=== PATIENT | female | born 1965 | race Caucasian/White ===

== ENCOUNTER 2019-03-05 07:06 | Emergency (ER) | payer BC, SELFPAY ==
[2019-03-05 07:17] VITALS: BP 132/78; PULSE 90; RESP 14; TEMP 37.1; O2SAT 98
--- NOTE | 2019-03-05 07:27 | ED.GENADUL_ITS ---
Discharge Plan Disposition Patient Disposition: HOME Condition: Improving Discharge Details Chief Complaint: Sorethroat Clinical Impression: Sinusitis Primary Care Provider: Kaitlyn Garvin ED Provider: Devin Can Home Meds and New Rx's Prescriptions: New cefdinir 300 mg capsule 300 mg PO Q12H 7 Days Qty: 14 RF: 0 No Action biotin 800 MCG tablet 10,000 mcg PO DAILY RF: 0 Cosamin ASU 1 EACH capsule 1 ea PO DAILY RF: 0 calcium carbonate-vitamin D3 [Caltrate with Vitamin D3] 1 EACH tablet 1 ea PO DAILY RF: 0 Discharge Instructions Instructions: Sinusitis (ED) Additional Instructions: Home to rest. Small, frequent sips of fluids to maintain hydration. 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 She reports that she went to [place] and swim in the ocean that was questionable in that it was warm and in a yelitza. Following this she developed sinus pain and pressure with sore throat for the past week. She has normal vital signs and is otherwise well-appearing. Screening strep negative. I do feel the patient merits treatment for acute sinusitis. Discussed with her home management as well as follow-up and return precautions. She is stable for discharge to home HPI General Mode of arrival: ambulatory . Date/Time Provider Initiated Documentation: 03/05/19 07:20 . Limitations to Documentation: no limitations . Information obtained by: patient . History of Present Illness 53 year old F presents to the emergency department with the chief complaint of Sore throat and sinus pressure for 1 wk, Quality is described as dull and constant, and is localized to the mouth and neck. Patient reports no radiation. Patient started experiencing this day(s) and it has been constant. No relieving factors improve symptom(s), No exacerbating factors reported . Patient notes other (Sore throat, sinus pain and pressure). Patient did receive the follo wing treatments prior to arrival, none Related Data Home Medications Medication Instructions Recorded Confirmed biotin 10,000 mcg PO DAILY 03/04/15 03/05/19 calcium carbonate-vitamin D3 1 ea PO DAILY 03/04/15 03/05/19 [Caltrate 600 + D Tablet] [id number] 1 ea PO DAILY 03/04/15 03/05/19 [Cosamin Asu Capsule] cefdinir 300 mg PO Q12H 7 Days #14 cap 03/05/19 Previous Rx's Medication Instructions Recorded cefdinir 300 mg PO Q12H 7 Days #14 cap 03/05/19 Allergies Allergy/AdvReac Type Severity Reaction Status Date / Time No Known Allergies Allergy Unverified 03/05/19 07:21 General Stated Complaint: Sorethroat YSABEL: 3 Review of Systems Review of Systems 6 systems reviewed and otherwise neg [facility] Surgical History Dilation and curettage (05/26/16) Hysteroscopy (05/26/16) Social History Smoking/Tobacco Use Status: Never Drug use: Never Do you feel safe at home: Yes Do you feel safe in your relationship?: Yes Exam Narrative Exam Narrative: GEN: awake, alert, oriented 3. Pleasant, well groomed, interactive. HEAD: Normocephalic, atraumatic ENT: Mucous membranes moist, oropharynx erythematous without swelling or, External ear exam unremarkable, tympanic membranes clear, bilateral maxillary sinus pain to percussion EYES: PERRL, EOMI NECK: Full ROM, no SHONNA, no menigismus CHEST/RESP: Nontender, clear to auscultation bilateral, no wheeze/rhonchi/rales CARDIOVASCULAR: RRR, no murmur, rub lito. 2+ Rad pulse bilateral ABDOMEN: Soft, nontender, no mass. +Bowel sounds EXT: Full ROM, no edema, no rash Neuro: Grossly normal neurologic exam, conversant, interactive. Psych: Speech fluent, thoughts congruent, affect normal Course Vital Signs Temperature 37.1 C 03/05/19 07:17 Pulse 90 03/05/19 07:17 Respiratory Rate 14 03/05/19 07:17 Blood Pressure 132/78 03/05/19 07:17 Pulse Oximetry 98 03/05/19 07:17 Temperature 37.1 C 03/05/19 07:17 Pulse 90 03/05/19 07:17 Respiratory Rate 14 03/05/19 07:17 Respiratory Effort Non-Labored 03/05/19 07:19 Blood Pressure 132/78 03/05/19 07:17 Pulse Oximetry 98 03/05/19 07:17 Oxygen Delivery Method Room Air 03/05/19 07:17 Oxygen Flow Rate 0 03/05/19 07:17 Pain Level 7 03/05/19 07:17
[2019-03-05 07:52] VITALS: BP 132/78; PULSE 90; RESP 14; TEMP 37.1; O2SAT 98
[2019-03-05] MEDS: Cefdinir 300 MG CAP PO (07:52)
== END 2019-03-05 08:00 | disposition home or self-care (01) ==
PROVIDERS: Emergency Provider Emergency Medicine; PCP Nurse Practitioner Women's Health
DX: J01.90 Acute sinusitis, unspecified (principal)
CPT/HCPCS: 87880; 99283; 87081

== ENCOUNTER 2019-03-27 01:01 | Outpatient (CLI) | payer BC, SELFPAY ==
--- NOTE | 2019-03-27 14:26 | DI.MAMMO_ITS ---
SYMPTOMS/DIAGNOSIS: SCREENING S/P BREAST IMPLANTS, Z12.31, Z98.82 MAMMOGRAM: Mammograms were interpreted according to the usual protocol including computer analysis with CAD system, tomosynthesis and C view imaging. There are bilateral mammary implants. Routine views and implant-displaced views were obtained. No dominant mass or clumped microcalcification is identified in either breast. Comparison with the previous examinations including February 2018 shows no gross interval change in appearance. CONCLUSION: No specific evidence of malignancy at this time. Routine screening examinations are suggested at yearly intervals due to the family history of breast carcinoma. Category 1, breast density category C. MQSA ASSESSMENT OF FINDINGS: Negative. Category 1. Patient will receive a letter notifying them of these results. Bi-RADS category C. The breasts are heterogeneously dense, which may obscure small masses.
== END 2019-03-27 01:21 ==
PROVIDERS: PCP Nurse Practitioner Women's Health; Visit Provider Nurse Practitioner Women's Health
DX: Z12.31 Encounter for screening mammogram for malignant neoplasm of breast (principal); Z98.82 Breast implant status; Z80.3 Family history of malignant neoplasm of breast
CPT/HCPCS: 77063; 77067

== ENCOUNTER 2019-06-30 13:01 | Emergency (ER) | payer BC, SELFPAY ==
[2019-06-30] VITALS (75 sets, daily range): BP systolic 97–127; BP diastolic 62–84; PULSE 51–100; RESP 9–22; TEMP 37–37.1; O2SAT 97–100
--- NOTE | 2019-06-30 13:27 | DI.CT_ITS ---
SYMPTOMS/DIAGNOSIS: BILATERAL EPIGASTRIC PAIN WITH RADIATION AROUND BILATERAL BACK, ? DISSECTION, PE, CHOLECYSTITIS, GASTRITIS OR PANCREATITIS CT ANGIOGRAPHY OF THE CHEST, ABDOMEN AND PELVIS: CT angiography was performed with multi slice acquisition and multi planar and 3D reconstruction. CT angiography of the chest, abdomen and pelvis was performed with a bolus infusion of 100 cc of Omnipaque 350. The lungs are clear. No pleural effusion. No mediastinal or hilar adenopathy. No evidence of pulmonary embolic disease. No gross abnormality of the thoracic aorta. Abdominal aorta is unremarkable, as are its major branches. No abdominal wall hernia. No free air or free intraperitoneal fluid. Adrenals and kidneys are unremarkable. The liver and spleen appear normal. There is cholelithiasis in a mildly distended gallbladder. There is borderline dilatation of the common bile duct at about 8 mm and there is distal common duct stone measuring about 2 mm in diameter. The pancreas is unremarkable in appearance. 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 Appendix is normal and there is no evidence of diverticulitis or bowel obstruction. CONCLUSION: Cholelithiasis and choledocholithiasis with a 2 mm in diameter stone of the distal common bile duct and borderline ductal dilatation at 8 mm.
[2019-06-30 13:47] LABS: Absolute Basophil Count 0.02 k/cumm (0.0-0.2); Absolute Eosinophil Count 0.03 k/cumm (0.0-0.7); Absolute Lymphocyte Count 1.79 k/cumm (1.2-3.4); Absolute Monocyte Count 0.37 k/cumm (0.11-0.7); Absolute Neutrophil Count 4.37 k/cumm (1.2-6.7); Basophils % 0.3; Eosinophils % 0.5; HCT 38.2 % (36.0-46.0); Lymphocytes % 27.2; Mean Corpuscular Volume 91.2 fL (80-95); Mean Platelet Volume 9.9 fL (8.0-11.0); Monocytes % 5.6; Neutrophils % 66.4; Platelet Count 329 x1000/uL (130-400); RBC 4.19 m/cumm (4.00-5.20); RBC Distribution Width 12.9 % (11.7-14.6); White Blood Cell Count 6.58 k/cumm (4.4-10.8)
[2019-06-30] MEDS: FAMOTIDINE 20 MG/50 ML BAG 200 MG IVPB (13:47)
[2019-06-30] MEDS: Normal Saline 1,000 ML 1000 ML IV (13:48)
[2019-06-30] MEDS: Normal Saline Flush 10 ML SYR IVP (13:48)
--- NOTE | 2019-06-30 13:51 | ED.GENADUL_ITS ---
Discharge Plan Disposition Patient Disposition: HOME Condition: Stable Discharge Details Chief Complaint: Chest Pain Clinical Impression: Biliary colic Primary Care Provider: Huma Escalante ED Provider: Keke Ayala Home Meds and New Rx's Prescriptions: Continued biotin 800 MCG tablet 10,000 mcg PO DAILY RF: 0 Cosamin ASU 1 EACH capsule 1 ea PO DAILY RF: 0 calcium carbonate-vitamin D3 [Caltrate with Vitamin D3] 1 EACH tablet 1 ea PO DAILY RF: 0 Discharge Instructions Instructions: Biliary Colic (ED), Abdominal Pain (ED) Additional Instructions: Alternate tylenol and motrin as needed and directed for pain. Drink plenty of fluids. Limit fried, fatty or sugary foods. Call Dr. Gutierrez today to schedule a follow up appointment next week for evaluation. Return to the emergency department if you develop any worsening or new concerning symptoms. Referrals: Rohini Gutierrez MD [ [facility] STAFF PHYSICIAN] - Discharge Data Discharge Date/Time-TO BE ENTERED AT DEPARTURE: 06/30/19 16:15 Discharge Physician: Keke Ayala Medical Decision Making 1315 -- 53-year-old female who presents with sudden onset of epigastric and upper abdominal pain with radiation around to both sides of her back that lasted approximately 20 minutes and associated with nausea, lightheadedness, shortness of breath and tingling in her arms and hands. She denies any of these symptoms at present and mainly complains of some fatigue. Vitals within normal limits. EKG notes a rate of 59, sinus with no acute ST or T wave ischemic changes. Her abdomen is soft and nontender. Lungs are clear. No focal deficits. She has no DVT/PE risk factors. Differential diagnosis includes dissection, PE, ACS, electrolyte abnormality, acute abdominal abnormality such as gastritis, pud, gerd. We will give fluids, dose of Pepcid, check screening labs as well as CT chest and abdomen. 1530 -- Labs and imaging reviewed. Labs unremarkable. CT imaging notes gallstones and a 2mm common bile duct stone with mild dilatation. Pt has remained pain free here in the ED and she feels good to go home. Findings d/w Dr. Gutierrez -as patient is pain-free with normal labs, recommends pt f/u with her next week in the office. Pt advised to limit fried, fatty or sugary foods. She was advised to return to the ER with any worsening or concerning symptoms. Medical Records Medical records reviewed: Yes I reviewed the patient's medical records. Imaging Data Radiologic Study: Radiologist's impression: CT ANGIOGRAPHY OF THE CHEST, ABDOMEN AND PELVIS: CT angiography was performed with multi slice acquisition and multi planar and 3D reconstruction. CT angiography of the chest, abdomen and pelvis was performed with a bolus infusion of 100 cc of Omnipaque 350. The lungs are clear. No pleural effusion. No mediastinal or hilar adenopathy. No evidence of pulmonary embolic disease. No gross abnormality of the thoracic aorta. Abdominal aorta is unremarkable, as are its major branches. No abdominal wall hernia. No free air or free intraperitoneal fluid. Adrenals and kidneys are unremarkable. The liver and spleen appear normal. There is cholelithiasis in a mildly distended gallbladder. There is borderline dilatation of the common bile duct at about 8 mm and there is distal common duct stone measuring about 2 mm in diameter. The pancreas is unremarkable in appearance. 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 Appendix is normal and there is no evidence of diverticulitis or bowel obstruction. CONCLUSION: Cholelithiasis and choledocholithiasis with a 2 mm in diameter stone of the distal common bile duct and borderline ductal dilatation at 8 mm. Lab Data Lab results reviewed: Yes I reviewed the patient's lab results. Laboratory Tests Range/Units 06/30/19 06/30/19 06/30/19 13:14 13:14 13:14 WBC (4.4-10.8) k/cumm 6.58 RBC (4.00-5.20) m/cumm 4.19 Hgb (12.0-15.5) g/dL 13.0 Hct (36.0-46.0) % 38.2 MCV (80-95) fL 91.2 MCH (27.0-33.0) pg 31.0 MCHC (32.0-36.0) g/dL 34.0 RDW (11.7-14.6) % 12.9 Plt Count (130-400) x1000/uL 329 MPV (8.0-11.0) fL 9.9 Immature Gran % 0.0 Neutrophils % 66.4 Lymphocytes % 27.2 Monocytes % 5.6 Eosinophils % 0.5 Basophils % 0.3 Absolute Neutrophils (1.2-6.7) k/cumm 4.37 Absolute Lymphocytes (1.2-3.4) k/cumm 1.79 Absolute Monocytes (0.11-0.7) k/cumm 0.37 Absolute Eosinophils (0.0-0.7) k/cumm 0.03 Absolute Basophils (0.0-0.2) k/cumm 0.02 Sodium (136-145) mmol/L 138 Potassium (3.5-5.1) mmol/L 4.1 Chloride (98-107) mmol/L 101 Carbon Dioxide (21.0-32.0) mmol/L 29.6 Anion Gap (3-11) mmol/L 7.4 BUN (7-18) mg/dL 12 Creatinine (0.55-1.02) mg/dL 0.75 Estimated GFR/1.73 m2 (mL/min/1.73m2) >= 60.00 Glucose (70-100) mg/dL 102 H Calcium (8.5-10.1) mg/dL 9.4 Magnesium (1.8-2.4) mg/dL 2.0 Total Bilirubin (0.2-1.0) mg/dL 0.4 AST (15-37) U/L 49 H ALT (14-59) U/L 56 Alkaline Phosphatase (46-116) U/L 86 Troponin I (0.00-0.06) ng/mL < 0.05 Total Protein (6.4-8.2) g/dL 7.4 Albumin (3.4-5.0) g/dL 3.7 Lipase (73-393) U/L 89 ECG Data Attestation: I personally reviewed and interpreted this ECG (s) as follows: Interpretation: Rate of 59, sinus, no acute ST elevation or depression. NC 136. QTc 416. QRS 100. HPI General Mode of arrival: ambulatory . Date/Time Provider Initiated Documentation: 06/30/19 13:12 . Limitations to Documentation: no limitations . Information obtained by: patient . HPI Narrative: Patient is a 53-year-old female who presents with sudden onset of pressure and dull aching lower rib and epigastric pain that radiated around to both sides of her back that lasted approximately 20 minutes and resolved. She states at this time she had some shortness of breath, lightheadedness, nausea and then shortly after developed tingling in her arms and hands which is now passed. She denies any pain at this time and states she mainly feels fatigued. She states prior to onset of symptoms she ate a large serving of cashews and a lower bar so she is unsure if this contributed to her symptoms. She admits to a similar history 1 year ago but not as intense and it resolved on its own and she did not seek any medical treatment. She denies any fever, cough, leg pain or swelling, recent surgery or recent travel. Related Data Home Medications Medication Instructions Recorded Confirmed Cosamin ASU 1 ea PO DAILY 03/04/15 03/05/19 biotin 10,000 mcg PO DAILY 03/04/15 03/05/19 calcium carbonate-vitamin D3 1 ea PO DAILY 03/04/15 03/05/19 [Caltrate with Vitamin D3] Allergies Allergy/AdvReac Type Severity Reaction Status Date / Time No Known Allergies Allergy Unverified 06/30/19 13:15 General Stated Complaint: Chest Pain YSABEL: 2 Review of Systems Review of Systems All systems reviewed & are unremarkable except as noted in HPI and below Constitutional Reports as per HPI, Denies chills and Denies fever(s) Eyes Denies blurry vision ENT Denies dizziness, Denies sore throat and Denies throat swelling Cardiovascular Denies chest pain and Denies dyspnea Respiratory Denies cough and Denies dyspnea Gastrointestinal Reports abdominal pain, Denies diarrhea and Denies vomiting Genitourinary Denies hematuria and Denies dysuria Musculoskeletal Reports back pain and Denies numbness Integumentary/Breasts Denies lesions and Denies rash Neurologic Denies dizziness, Denies focal weakness and Denies numbness Allergic/Immunologic Denies throat swelling [facility] Medical History Ectopic (Acute) Surgical History Dilation and curettage (05/26/16) MD Clarence David Hysteroscopy (05/26/16) MD Clarence David; multiple infertility treatments S/P skin cancer resection (Acute) multiple Social History Smoking/Tobacco Use Status: Never Alcohol Intake: current Alcohol Intake frequency: holidays/special occasions only Drug use: Never Do you feel safe at home: Yes Do you feel safe in your relationship?: Yes Exam Const General: cooperative, healthy appearing and no acute distress HENID Head: normal to inspection Face and sinus: normal facial exam Eyes General: appearance normal, both eyes and all related structures EOM: EOM intact bilaterally Neck Neck: normal visual inspection and No submandibular swelling Lymphatic: no lymphadenopathy noted Chest Chest: normal inspection of the chest and no tenderness Resp Effort & Inspection: normal respiratory effort and able to speak in complete sentences Auscultation: clear to auscultation bilaterally Cardio Rate: regular rate Rhythm: regular rhythm GI Inspection: normal to inspection Palpation: soft, not firm, not rigid and nontender Auscultation: normal bowel sounds Back/Spine/Pelvis Thoracic/Lumbar Spine: thoracic and lumbar spine normal to inspection Skin General skin exam: no rashes or lesions noted Neuro General: alert, awake and oriented x3 Cognition: normal cognition Speech: speech normal Motor: muscle tone normal throughout and strength 5/5 throughout Sensory Exam: no sensory deficits noted Extrem General: normal to inspection, full ROM, normal capillary refill, no calf tenderness bilaterally and no edema Other: Bilateral radial, ulnar, DP and PT pulses intact. Psych Appearance: grossly normal Mental Status: mental status grossly normal Speech and Movement: speech and movement normal Affect: normal affect Course Vital Signs Pulse 62 06/30/19 13:00 Respiratory Rate 15 06/30/19 13:00 Blood Pressure 122/73 06/30/19 13:00 Temperature 98.6 F 06/30/19 13:09 Temperature Source Temporal Artery Scan 06/30/19 13:09 Pulse 58 L 06/30/19 13:16 Pulse 60 06/30/19 13:16 Respiratory Rate 16 06/30/19 13:16 Respiratory Effort Non-Labored 06/30/19 13:26 Respiratory Depth Normal 06/30/19 13:26 Respiratory Pattern Normal 06/30/19 13:26 Blood Pressure 119/79 06/30/19 13:16 Blood Pressure Mean 89 06/30/19 13:16 Blood Pressure Position Supine 06/30/19 13:09 Pulse Oximetry 100 06/30/19 13:16 Oxygen Delivery Method Room Air 06/30/19 13:09 Oxygen Flow Rate 0 06/30/19 13:09 Pain Level 0 06/30/19 13:09 Lab/Test Results Lab/Test Results: Laboratory Tests Range/Units 06/30/19 13:14 WBC (4.4-10.8) k/cumm 6.58 RBC (4.00-5.20) m/cumm 4.19 Hgb (12.0-15.5) g/dL 13.0 Hct (36.0-46.0) % 38.2 MCV (80-95) fL 91.2 MCH (27.0-33.0) pg 31.0 MCHC (32.0-36.0) g/dL 34.0 RDW (11.7-14.6) % 12.9 Plt Count (130-400) x1000/uL 329 MPV (8.0-11.0) fL 9.9 Immature Gran % 0.0 Neutrophils % 66.4 Lymphocytes % 27.2 Monocytes % 5.6 Eosinophils % 0.5 Basophils % 0.3 Absolute Neutrophils (1.2-6.7) k/cumm 4.37 Absolute Lymphocytes (1.2-3.4) k/cumm 1.79 Absolute Monocytes (0.11-0.7) k/cumm 0.37 Absolute Eosinophils (0.0-0.7) k/cumm 0.03 Absolute Basophils (0.0-0.2) k/cumm 0.02
[2019-06-30 14:15] LABS: ALT 56 U/L (14-59); AST 49 U/L (15-37); Albumin 3.7 g/dL (3.4-5.0); Alkaline Phosphatase 86 U/L (46-116); Anion Gap 7.4 mmol/L (3-11); BUN 12 mg/dL (7-18); Bilirubin, Total 0.4 mg/dL (0.2-1.0); CO2 29.6 mmol/L (21.0-32.0); CREATININE 0.75 mg/dL (0.55-1.02); Calcium 9.4 mg/dL (8.5-10.1); Chloride 101 mmol/L (98-107); Glucose 102 mg/dL (70-100); Potassium 4.1 mmol/L (3.5-5.1); Sodium 138 mmol/L (136-145); Total Protein 7.4 g/dL (6.4-8.2)
[2019-06-30 14:35] LABS: Troponin I < 0.05 ng/mL (0.00-0.06)
[2019-06-30 14:41] LABS: Lipase 89 U/L (73-393)
[2019-06-30] MEDS: Omnipaque 350 MG/ML 100 ML BTL IJ (14:49)
== END 2019-06-30 16:15 | disposition home or self-care (01) ==
PROVIDERS: Emergency Provider Physician Assistant; PCP Family Medicine
DX: K80.70 Calculus of gallbladder and bile duct without cholecystitis without obstruction (principal); R10.11 Right upper quadrant pain; R11.0 Nausea; R42 Dizziness and giddiness; R07.9 Chest pain, unspecified
CPT/HCPCS: 36415; 71275; 74177; 80053; 83690; 93005; 96361; 96365; 99285; 83735; 84484; 85025; 93010; J3490

== ENCOUNTER 2019-07-25 07:18 | Day surgery (SDC) | payer BC, SELFPAY ==
[2019-07-25] VITALS (8 sets, daily range): BP systolic 95–126; BP diastolic 56–72; PULSE 58–93; RESP 12–16; TEMP 36.2–36.7; O2SAT 98–100
[2019-07-25] MEDS: Lactated Ringers 1,000 ML 80 ML IV (08:10)
--- NOTE | 2019-07-25 09:21 | DI.RAD_ITS ---
EXAM: XR CHOLANGIOGRAM OPERATIVE CLINICAL HISTORY: Cholelithiasis. TECHNIQUE: 2D and realtime digital imaging was performed. CONTRAST MATERIAL: Fluoro time: 16.5 sec, 2.46 mGy FINDINGS: Fluoroscopy was utilized during the performance of an intraoperative cholangiogram. A single fluoros copic image is obtained. Filling defects are present in the gallbladder consistent with cholelithias is. There is extraluminal contrast present. Please see Dr. Gutierrez's Intraoperative report for complet e details.
[2019-07-25] MEDS: ceFAZolin 2 GM/50 ML BAG IVPB (09:51)
[2019-07-25] MEDS: Omnipaque 300 MG/ML 50 ML BTL (10:31)
--- NOTE | 2019-07-25 10:43 | GB_PTH ---
PATIENT: Elvira Mack LOC: [facility] U#:[id number] AGE/SX: 53/F ROOM: RE07/25/[address]: Rohini Gutierrez MD : 1965 BED: DIS: 07/25/2019 SPEC #: [id number] RECD: 07/25/19 12:54 STATUS: TREMAYNE REQ #: [id number] MIGUEL: 07/25/19 10:[address]: Rohini Gutierrez DEPT: Surgical Specimen RECD BY: Jennifer Campa ENTERED: 07/25/19 12:55 SP TYPE: GB OTHR DR: None Tissues: 1 - GALLBLADDER Procedures: GROSS AND MICRO LEVEL 3 Comments: [id number]
--- NOTE | 2019-07-25 10:54 | W.PM.DSUDISC ---
Discharge Plan Disposition Patient Disposition: HOME Condition: Good Discharge Details Reason For Visit: Laparoscopic cholecystectomy Attending Provider: Rohini Gutierrez Primary Care Provider: None,None Home Meds and New Rx's Prescriptions: New oxycodone-acetaminophen 5-325 mg Tablet 1 tab PO Q4H PRN PRN (Reason: Pain) Qty: 15 RF: 0 Continued CalMag Thins 200 mg calcium- 50 mg tablet 3 tab PO DAILY RF: 0 vitamin B complex [B Complex-Vitamin B12] Tablet 1 tab PO DAILY RF: 0 ahi flower 1 cap PO DAILY RF: 0 de-ribose 1 tab PO DAILY RF: 0 evening primrose oil 500 mg Capsule 1,000 mg PO DAILY RF: 0 cholecalciferol (vitamin D3) 400 unit Capsule 400 unit PO DAILY RF: 0 Discharge Instructions Additional Instructions: The top bandage can be removed tomorrow. The steri strips will usually stick for about a week. When the edges start to curl up, they can be removed. It is okay to shower tomorrow, the water can run over the steri strips Do not swim or soak in a tub for two weeks Call for any concerns including fever, increased pain, vomiting, incision redness or drainage. Do not lift more than 15 pounds for two weeks. Walking and stairs are fine. Do not drive if on narcotic pain meds or if limited by pain. May use Tylenol alternating with ibuprofen for pain control. Ice is also an option. The maximum dose for Tylenol is 4000 mg/day. May use ibuprofen 800 mg every 8 hours as needed. If concerned about constipation, you may use a stool softener or milk of magnesia. A common bile duct stone was present. We will make a referral for you to go to [facility] for an ERCP to remove the stone. Referrals: Rohini Gutierrez MD [ [facility] STAFF PHYSICIAN] - (Return in 10-14 days for postoperative visit) Activity:: DO not lift more than 15 pounds Remove Dressings/Wound Care:: 24 hours Shower/Bathe:: 24 hours Diet:: As Tolerated Discharge Orders Discharge Orders: Discharge Order (Routine); Ordered 07/25/19 Ordered By: Rohini Gutierrez DS: Diagnosis Discharge Diagnosis (1) Cholelithiasis: Status: Acute (2) Choledocholithiasis: Status: Acute
[2019-07-25] MEDS: fentaNYL 100 MCG/2 ML VIAL IVP ×2 (11:40→11:50)
--- NOTE | 2019-07-27 11:23 | ROE_ITS ---
JULY 25, 2019 PREOPERATIVE DIAGNOSIS: 1) Cholelithiasis 2) Choledocholithiasis POSTOPERATIVE DIAGNOSIS: Same OPERATION: Laparoscopic cholecystectomy with cholangiogram. ANESTHESIA: Local and general. INDICATIONS: This is a 53-year-old woman who presented with epigastric pain that radiates to her back. She also has nausea. The pain can last from 30 minutes to 1 1/2 hours. She had a CT scan of the abdomen and pelvis that showed cholelithiasis and a 2 millimeter common bile duct stone. Her liver function tests were normal. PROCEDURE: She was placed supine on the operating table and under general anesthetic was prepped and draped sterilely. A 5 millimeter incision was made to the left of the umbilicus. The abdomen was entered under direct visualization. A CO2 pneumoperitoneum was begun and she was placed in the reverse Trendelenburg position. The epigastric and two lateral ports were placed after injecting local anesthetic under direct visualization. The gallbladder did not appear acutely inflamed. The fundus was pulled up over the liver. There were some omental adhesions that were taken down with hook cautery. The infundibulum was retracted laterally. The peritoneum overlying the triangle of Calot was dissected free with hook cautery. During this dissection it was noted that she had some mild edema of the tissues. The cystic duct and artery were isolated and visualized going directly onto the gallbladder. I also visualized the common bile duct and avoided it. The cystic duct was not clearly dilated. Palpation of it revealed no stones within it. It was about at this point of the procedure that the patient had an episode of profound bradycardia. This resolved with release of the pneumoperitoneum. The insufflation pressure was turned down and the procedure resumed. The infundibulum of the gallbladder was clamped using the Jean-Baptiste clamp. The needle to access the gallbladder did not line up very well with the infundibulum and so a small hole was made in the gallbladder but there was not good enough access to perform the cholangiogram. I repositioned the Jean-Baptiste clamp and then accessed the infundibulum with the needle nicely. Injection of saline flowed through the cystic duct but also did leak out slightly from the prior needle access attempt. The cholangiogram was performed which did show some leakage of the contrast from the initial needle hole. There was flow into the common bile duct and down into the duodenum. There was, at least, one small distal filling defect consistent with a small common bile duct stone. The Jean-Baptiste clamp was removed. The cystic duct was clipped three times distally and once proximally in anticipation of an ERCP. It was then divided between the clips. The artery was clipped twice proximally and once distally and divided. The gallbladder was then dissected off from the liver bed with hook cautery, again with some mild edema as noted previously. There were two small arterial branches within the gallbladder fossa that were clipped. Again the patient had an episode of profound bradycardia which resolved with release of the pneumoperitoneum and the insufflation pressure was turned down to 8 at this point because I had good visualization. She responded to release of the pressure as well as to Atropine and the procedure was completed. The gallbladder was dissected off from the liver bed and placed in an endocatch bag and removed through the epigastric incision. Inspection of the operative site revealed no bleeding or bile leak. The region was irrigated and suctioned clean. The ports were removed with no evidence of bleeding and the CO2 released. The skin and all port sites were closed with a #4-0 Monocryl subcuticular stitch. She was stable and sent to the Recovery Room. She will be referred to Gastroenterology at [facility] for an ERCP.
== END 2019-07-25 13:45 | disposition home or self-care (01) ==
PROVIDERS: Visit Provider Surgery
PROC: 0FT44ZZ Resection of Gallbladder, Percutaneous Endoscopic Approach (ICD-10-PCS; CPT 47563; principal; 2019-07-25 09:00)
DX: K80.50 Calculus of bile duct without cholangitis or cholecystitis without obstruction (principal); K80.10 Calculus of gallbladder with chronic cholecystitis without obstruction
CPT/HCPCS: 47563; 74300; 88304; J0690; J1100; J1885; J2405; J3010; Q9967

== ENCOUNTER 2019-08-11 09:57 | Outpatient (CLI) | payer BC, SELFPAY ==
[2019-08-11 11:17] LABS: Abs Immature Grans 0.01 k/cumm (0.0-0.09); Absolute Basophil Count 0.01 k/cumm (0.0-0.2); Absolute Eosinophil Count 0.12 k/cumm (0.0-0.7); Absolute Lymphocyte Count 1.11 k/cumm (1.2-3.4); Absolute Monocyte Count 0.23 k/cumm (0.11-0.7); Absolute Neutrophil Count 5.48 k/cumm (1.2-6.7); Basophils % 0.1; Eosinophils % 1.7; HCT 39.1 % (36.0-46.0); HGB 12.9 g/dL (12.0-15.5); Immature Grans % 0.1; Lymphocytes % 15.9; Mean Corpuscular Hemoglobin 30.7 pg (27.0-33.0); Mean Corpuscular Volume 93.1 fL (80-95); Mean Platelet Volume 9.5 fL (8.0-11.0); Monocytes % 3.3; Neutrophils % 78.9; Platelet Count 503 x1000/uL (130-400); RBC Distribution Width 12.7 % (11.7-14.6); White Blood Cell Count 6.96 k/cumm (4.4-10.8)
[2019-08-11 11:49] LABS: ALT 32 U/L (14-59); AST 23 U/L (15-37); Albumin 3.8 g/dL (3.4-5.0); Alkaline Phosphatase 91 U/L (46-116); Anion Gap 9.5 mmol/L (3-11); BUN 8 mg/dL (7-18); Bilirubin, Total 0.3 mg/dL (0.2-1.0); CO2 29.5 mmol/L (21.0-32.0); CREATININE 0.72 mg/dL (0.55-1.02); Calcium 9.3 mg/dL (8.5-10.1); Chloride 102 mmol/L (98-107); Glucose 90 mg/dL (70-100); Potassium 4.6 mmol/L (3.5-5.1); Sodium 141 mmol/L (136-145); Total Protein 7.7 g/dL (6.4-8.2)
== END 2019-08-11 10:17 ==
PROVIDERS: Visit Provider Surgery
DX: K80.50 Calculus of bile duct without cholangitis or cholecystitis without obstruction (principal)
CPT/HCPCS: 36415; 80053; 85025

== ENCOUNTER 2021-02-21 02:57 | Outpatient (CLI) | payer BC, SELFPAY ==
--- NOTE | 2021-02-21 | DI.MAMMO_ITS ---
Exam(s) US BREAST RT LIMITED MG MAMMO DIAGNOSTIC BI EXAM: MAMMO DIAGNOSTIC BI and U/S breast RT limited CLINICAL HISTORY: DIAGNOSTIC, IMPLANTS, RT BREAST MASS, N63.10. TECHNIQUE: Craniocaudal and mediolateral oblique Full Field Digital Mammography views with Computer Aided Diagnosis followed by Tomosynthesis and right breast ultrasound. COMPARISON: Priors available for comparison. FINDINGS: Mammography/Tomosynthesis: Masses/Architectural Distortion: The patient's has bilateral breast implants. There is dense calcifi cation of the right breast implant. There is mild calcification of the left breast implant. Focal a symmetric breast tissue is again seen at the 9 o'clock position of the right breast and appears stabl e. No suspicious masses are seen. Microcalcifictions: No suspicious pleomorphic-type are seen. Skin Thickening/Nipple Retraction: None. Right breast US: Echotexture: Normal appearance of the glandular tissue. Shadowing: There is shadowing seen in the right breast corresponding to the right breast implant calc ification. Cyst: None. Solid lesions: None seen. Ductal dilation: None. IMPRESSION: 1. No evidence of malignancy is noted. 2. Unless there is more urgent need, follow-up screening mammography is recommended, as per [place] [employer] guidelines. 3. The findings were discussed with the patient on the date of the examination. BI-RADS Category 1 - Negative Breast Density - Category C - Heterogeneously dense Breast density Category C or D implies that the patient has dense breast tissue. Dense breast tissue can make it harder to find cancer on a mammogram. Dense breast tissue is also associated with an incr eased risk of breast cancer. This information about the result of the mammogram report was provided to the patient to raise their awareness. Use this report when you speak with the patient about their risks for breast cancer, which includes their family history. At that time, you may recommend additional screening tests (Ultrasoun d or MRI) as these tests may add significant information. A negative radiographic report should not delay biopsy if a dominant or clinically suspicious mass is present. Up to ten percent of cancers are not identified on mammography. A negative report may reinforce clinical impression. Adenosis and dense breasts may obscure an underlying neoplasm. False positive reports average 6 to 10%. Patient will receive a letter notifying them of these results.
== END 2021-02-21 03:17 ==
PROVIDERS: Visit Provider Nurse Practitioner Women's Health
DX: N63.11 Unspecified lump in the right breast, upper outer quadrant (principal); Z98.82 Breast implant status
CPT/HCPCS: 76642; 77062; 77066; G0279

== ENCOUNTER 2021-06-23 03:55 | Outpatient (CLI) | payer BC, SELFPAY ==
[2021-06-23 09:01] LABS: ALT 34 U/L (14-59); AST 26 U/L (15-37); Albumin 3.9 g/dL (3.4-5.0); Alkaline Phosphatase 97 U/L (46-116); Anion Gap 9.6 mmol/L (3-11); BUN 11 mg/dL (7-18); Bilirubin, Total 0.4 mg/dL (0.2-1.0); CO2 27.4 mmol/L (21.0-32.0); CREATININE 0.7 mg/dL (0.55-1.02); Calcium 9.5 mg/dL (8.5-10.1); Calculated LDL 85 mg/dL (<100); Chloride 103 mmol/L (98-107); Cholesterol 155 mg/dL (<200); Folate 12.2 ng/mL (8.6-20.0); Glucose 90 mg/dL (74-106); HDL Cholesterol 63 mg/dL (40-60); Potassium 4.4 mmol/L (3.5-5.1); Sodium 140 mmol/L (136-145); Total Protein 7.4 g/dL (6.4-8.2); Triglyceride 38 mg/dL (<150); Vitamin B12 981 pg/mL (193-986)
[2021-06-24 13:36] LABS: Hepatitis C Ab w Rflx HCV PCR Negative (Negative)
[2021-06-24 13:37] LABS: HIV-1/2 Ag & Ab Screen Negative (Negative)
== END 2021-06-23 03:56 | disposition home or self-care (01) ==
LOC: LBO 03:55
PROVIDERS: PCP Nurse Practitioner Adult Health; Visit Provider Nurse Practitioner Adult Health
DX: Z13.1 Encounter for screening for diabetes mellitus (principal); Z13.220 Encounter for screening for lipoid disorders; Z85.820 Personal history of malignant melanoma of skin; Z11.4 Encounter for screening for human immunodeficiency virus [HIV]; Z11.59 Encounter for screening for other viral diseases; Z78.9 Other specified health status; Z98.890 Other specified postprocedural states
CPT/HCPCS: 36415; 80053; 80061; 86803; 87389; 82607; 82746

== ENCOUNTER → 2022-04-15 01:29 | Outpatient (CLI) | payer BC, SELFPAY ==
--- NOTE | 2022-04-15 | DI.MAMMO_ITS ---
Exam(s) MG MAMMO SCREENING 60 MIN DUR EXAM: MG MAMMO SCREENING 60 MIN DUR CLINICAL HISTORY: SCREENING, IMPLANTS,Z12.31 TECHNIQUE: Bilateral full field digital CC and MLO mammographic images were obtained with 3D tomosyn thesis and utilizing computer aided detection (CAD). COMPARISON: Available for comparison. FINDINGS: Masses/Architectural Distortion: None seen. The patient has bilateral breast implants. There is agai n seen asymmetric breast tissue in the retroareolar region of the right breast which appears stable. Microcalcifications: No suspicious pleomorphic-type are seen. Skin Thickening/Nipple Retraction: None. IMPRESSION: 1. No significant interval change with no specific features of malignancy noted. 2. Unless there is more urgent need, screening mammography is recommended, as per [place] [employer] guidelines. BI-RADS Category 1 - Negative Breast Density - Category C - Heterogeneously dense Breast density category C or D implies that the patient has dense breast tissue. Dense breast tissue is very common and is not abnormal but dense breast tissue can make it harder to find cancer on a ma mmogram. Also, dense breast tissue may increase their breast cancer risk. This information about the result of the mammogram report was provided to the patient to raise their awareness. Use this report when you speak with the patient about their risks for breast cancer, which includes their family hist ory. At that time, you may recommend for more screening tests (Ultrasound or MRI) as they might be us eful based on their risk. A negative radiographic report should not delay biopsy if a dominant or clinically suspicious mass is present. Up to ten percent of cancers are not identified on mammography. A negative report may reinforce clinical impression. Adenosis and dense breasts may obscure an underlying neoplasm. False positive reports average 6 to 10%. Patient will receive a letter notifying them of these results.
== END ==
PROVIDERS: PCP Nurse Practitioner Adult Health; Visit Provider Nurse Practitioner Women's Health
DX: Z12.31 Encounter for screening mammogram for malignant neoplasm of breast (principal); Z98.82 Breast implant status
CPT/HCPCS: 77063; 77067

== ENCOUNTER → 2022-05-01 00:45 | Outpatient (CLI) | payer BC, SELFPAY ==
--- NOTE | 2022-05-01 15:14 | DI.DEXA_ITS ---
Exam(s) XR DEXA BONE DENSITY W/WO BONY EXAM: XR DEXA BONE DENSITY W/WO BONY CLINICAL HISTORY: loss of height, screening for osteoporosis in postmenopausal woman,z78.0 TECHNIQUE: [employer] C densitometer analysis of left hip, lumbar spine and left forearm. COMPARISON: No exams were available for comparison FINDINGS: Lateral view of the thoracic and lumbar spine shows a mild compression fracture of the superior endpl ate of L2. Bone mineral density measurements of the lumbar spine were not performed due to history of L2 fractur e. Bone mineral density measurements of the left hip correspond to a total T-score of -2.3. The femora l neck T-score is -2.8, in the osteoporotic range.. The left forearm bone mineral density measurements correspond to a T-score of the distal 3rd of 0.2, in the normal range. IMPRESSION: Osteoporosis of the left hip. Normal bone mineral density of the forearm.
== END ==
PROVIDERS: PCP Nurse Practitioner Adult Health; Visit Provider Nurse Practitioner Adult Health
DX: R29.890 Loss of height (principal); Z78.0 Asymptomatic menopausal state; Z82.62 Family history of osteoporosis; Z13.820 Encounter for screening for osteoporosis; M81.0 Age-related osteoporosis without current pathological fracture
CPT/HCPCS: 77080

== ENCOUNTER → 2023-07-12 02:57 | Outpatient (CLI) | payer BC, SELFPAY ==
--- NOTE | 2023-07-12 11:10 | DI.MAMMO_ITS ---
Exam(s) MG MAMMO SCREENING 60 MIN DUR EXAM: MG MAMMO SCREENING 60 MIN DUR CLINICAL HISTORY: breast cancer screening,IMPLANTS,FAMILY H/O BREAST CA,Z80.3 TECHNIQUE: Bilateral full field digital CC and MLO mammographic images were obtained with 3D tomosyn thesis and utilizing computer aided detection (CAD). Implant displaced views were performed in tapan tion to the routine views. COMPARISON: 2014 through 2021 FINDINGS: Bilateral breast implants are again noted which show peripheral calcification. Masses/Architectural Distortion: None seen. Microcalcifications: No suspicious pleomorphic-type are seen. Skin Thickening/Nipple Retraction: None. IMPRESSION: 1. No significant interval change with no specific features of malignancy noted. 2. Unless there is more urgent need, screening mammography is recommended, as per [place] [employer] guidelines. BI-RADS Category 1 - Negative Breast Density - Category C - Heterogeneously dense Breast density category C or D implies that the patient has dense breast tissue. Dense breast tissue is very common and is not abnormal but dense breast tissue can make it harder to find cancer on a ma mmogram. Also, dense breast tissue may increase their breast cancer risk. This information about the result of the mammogram report was provided to the patient to raise their awareness. Use this report when you speak with the patient about their risks for breast cancer, which includes their family hist ory. At that time, you may recommend for more screening tests (Ultrasound or MRI) as they might be us eful based on their risk. A negative radiographic report should not delay biopsy if a dominant or clinically suspicious mass is present. Up to ten percent of cancers are not identified on mammography. A negative report may reinforce clinical impression. Adenosis and dense breasts may obscure an underlying neoplasm. False positive reports average 6 to 10%. Patient will receive a letter notifying them of these results.
== END ==
PROVIDERS: PCP Nurse Practitioner Adult Health; Visit Provider Nurse Practitioner Adult Health
DX: Z12.31 Encounter for screening mammogram for malignant neoplasm of breast (principal); Z80.3 Family history of malignant neoplasm of breast; Z98.82 Breast implant status
CPT/HCPCS: 77063; 77067

== ENCOUNTER 2024-02-06 14:22 | Emergency (ER) | payer BC, SELFPAY ==
[2024-02-06 14:23] VITALS: BP 135/87; PULSE 73; RESP 18; TEMP 37.1; O2SAT 100
--- NOTE | 2024-02-06 14:30 | DI.CT_ITS ---
Exam(s) CT THORACIC LUMBAR SPINE WO EXAM: CT THORACIC LUMBAR SPINE WO CLINICAL HISTORY: midline lower lumbar spinal tenderness. TECHNIQUE: Imaging Protocol: Axial computed tomography images with coronal and sagittal reformatted images were created and reviewed. COMPARISON: CT CT CHEST PE ABD PELVIS W from 06/30/2019 CR XR DEXA BONE DENSITY W/WO BONY from 05/01/2022 FINDINGS: Bones: There is a stable superior endplate compression deformity of L2. There is also stable large S chmorl's node in the superior endplate of L3. Since the examinations from the in 2018 and 2021, there is now superior compression of the T12 and L4 endplates. There is loss of 25 of the height of the T 12 vertebral body. There is loss of a 3rd of the height of the L4 vertebral body centrally. There i s also mild compression of the superior aspect of L1. There is also mild compression of the T7 verteb ral body which is new compared to the CT scan from 06/30/2019. Soft tissues: The soft tissues are unremarkable. No large disk herniations are identified. IMPRESSION: 1. Since the prior examinations including a CT scan from 06/30/2019 and a DEXA scan from 05/01/2022, ther e are new compression deformities involving T7, T12, L1 and L4. These may be acute. An MRI may be u seful to assess the acuity of these compression fractures. 2. Old L2 and L3 vertebral body deformities. 3. No significant central spinal canal or neural foraminal stenosis. RADIATION DOSE DELIVERED: 716.39mGy.cm Total DLP DATA REPOSITORY: All CT scans at this facility are submitted to the National Radiology Data Registry (NRDR) Dose Index Registry (DIR) with the [employer] (ACR). RADIATION OPTIMIZATION: All CT scans at this facility use at least one of these dose optimization te chniques: automated exposure control; mA and/or kV adjustment per patient size (includes targeted exa ms where dose is matched to clinical indication); or iterative reconstruction.
--- NOTE | 2024-02-06 14:30 | DI.RAD_ITS ---
Exam(s) XR CHEST 1V IN DI DEPT EXAM: XR CHEST 1V IN DI DEPT CLINICAL HISTORY: History of falling TECHNIQUE: 2D digital imaging was performed of the chest. One image was obtained. An AP view was ob tained. COMPARISON: No exams were available for comparison FINDINGS: MEDIASTINUM: Normal. HEART: Normal. PULMONARY VASCULATURE: Normal. LUNGS: The lungs appear hyperinflated suggesting underlying COPD. PLEURAL SPACE: No pleural effusion or pneumothorax. BONE:Within normal limits for the patient's age. OTHER FINDINGS:Breast implants are in place. IMPRESSION: No acute pulmonary findings. DATA REPOSITORY: RADIATION DOSE DELIVERED:
--- NOTE | 2024-02-06 14:34 | ED.GENADUL_ITS ---
Discharge Plan Disposition Patient Disposition: Home Discharge Details Clinical Impression: T12 compression fracture Primary Care Provider: Christen Coon ED Provider: Matthew Colón Home Meds and New Rx's Prescriptions: New lidocaine [Lidoderm] 5 % adhesive patch,medicated 1 patch topical DAILY Qty: 15 0RF Rx Instructions: leave on most painful area for up to 12 hrs Continued timolol 0.25 % drops 1 drp ophthalmic (eye) DAILY vitamin B complex [B Complex-Vitamin B12] Tablet 1 tab PO DAILY ahi flower 1 cap PO DAILY Patient Comments: omega 3 fatty acid supplement latanoprost 0.005 % drops 1 drp ophthalmic (eye) DAILY evening primrose oil 500 mg capsule 1,000 mg PO DAILY PRN (Reason: hot flashes) Rx Instructions: give with meal/snack cholecalciferol (vitamin D3) 400 unit Capsule 400 unit PO DAILY Discharge Instructions Additional Instructions: You are seen in the emergency department for your back pain. You are found to have a T12 compression fracture. Please do not twist or bend. Please do not lift anything heavier than 10 pounds. The orthopedic spine team at [facility] will call you for follow-up. As we discussed if you develop any weakness in your legs, lose control of your bowel or bladder or have any numbness or tingling between your legs please return to the emergency department. For your pain please take medications as follows: 1. Take acetaminophen (Tylenol), 1,000 mg (two 500 mg tabs) every 6 hours [2. Take ibuprofen (Advil), 400 mg every 6 hours.] You are also receiving a prescription for opiate medications. Please do not drink alcohol or operate machinery or drive any cars after taking these opiates. Please use the nausea medicines as needed. A prescription for numbing patches has been sent to your pharmacy. HPI General Date/Time Provider Initiated Documentation: 02/06/24 14:33 . HPI Narrative: MDM Primary survey intact. Reassuring shock index. No indication for CT head based on Palauan CT head rule. Negative EFAST exam. No indication for CT cervical spine based on Nexus criteria. No trauma to chest or abdomen to suggest increased risk for thoracoabdominal trauma however will obtain a chest x-ray. No preceding syncope chest pain nor dizziness so no indication for syncope evaluation ECG dimer nor electrolyte assessment. Furthermore patient has not been vomiting. Patient declines analgesia and I do not feel that she requires an IV line given her limited mechanism of injury and reassuring exam. Will reassess following CT thoracic and lumbar spine. 4:45 PM Patient found to have an acute appearing T12 compression fracture with mild retropulsion without stenosis. Uncertain chronicity of additional T7 fracture. Patient is neurologically intact. Will obtain upright AP and lateral thoracic spine films. Will consult spine [facility]. At lumbar spine showing mild lumbar compression deformities L2-L4 suspect nonacute per radiology. 5:56 PM I spoke with Dr. Chad Leal from [facility] orthospine. He advised standing AP thoracolumbar spine films, TLSO brace as needed, no lifting bending or twisting until feeling improved. No weightbearing greater than 10 pounds. I have asked health day camp unit leader Rachana to put in a [facility] as unfortunately we do not have TLSO braces in the emergency department nor are they available at the local orthopedic clinic. 6:50 PM Patient transiently felt lightheaded going to the bathroom. She had not been eating. She had had multiple pain meds. She received 500 cc of fluids and felt markedly improved. She was able to stand up. We discussed ED return for any numbness in her legs numbness or tingling between her legs or any loss of bowel or bladder control. She understood her return indications and was discharged with empiric trial of expectant outpatient management with orthospine follow-up. I counseled her on schedule acetaminophen and ibuprofen. I also discharged her with a short course of opiates and counseled her on taking MiraLAX if she began taking her opiates. I instructed her to not drink or drive after taking opiates. I wrote her for a prescription of Lidoderm patches. Per Nexus criteria, cervical CT not obtained. The patient had no c-spine midline tenderness, no evidence of intoxication, was AAOx3, had no focal neurological deficits, and no painful distracting injuries. Palauan Head CT Criteria Major Criteria GCS < 15 : [No] Open or depressed skull Fx: [No] Sign of Basilar Skull Fx: [No] > 2 Episodes Vomiting: [No] Anticoagulation: [No] Age > 65: [No] Minor Criteria Retrograde Amnesia >30min: [No] Dangerous Mechanism: [No] Per Palauan head CT rules, CT head not obtained. The patient had a GCS of 15, no open/depressed skull fracture, no signs of basilar skull fracture (hemotympanum, raccoon eyes, husain's sign, CSF Harvinder/Rhinorrhea), no vomiting, and is less than 65 years of age. Chronic conditions affecting the care of the patient: N/A History obtained from an outside historian: Paramedics External record review: N/A Diagnostic interpretations performed by me: Per my independent interpretation chest x-ray shows: No acute cardiopulmonary process ]Medications: Acetaminophen ibuprofen oxycodone Social determinants of health affecting disposition: N/A Management discussed with: Orthospine Treatment/interventions considered: N/A Response to therapies provided: Improved pain in the ED HPI This is a previously healthy 58-year-old female not on any routine medications no anticoagulants arrived to the emergency department via paramedics following a fall. Patient was reportedly outdoors on a steep embankment gardening. She was attempting to pull a root out to the ground. She lost her balance and fell backward striking her lower back on a rock. She does have a remote history of an L2 fracture reportedly 15 years ago. At that point in time she fell off a horse. She was treated nonoperatively with a brace for 3 months. She has had pain subsequently in her low back since her fall today. She denies any preceding chest pain shortness of breath dizziness nausea or vomiting. She did not lose consciousness hit her head. She denies lower extremity numbness and tingling. Exam General: Well-appearing in no acute distress speaking in complete sentences. Head: Normocephalic, atraumatic. Eye:[Pupils equal, round reactive to light.] Extraocular eye movements intact. No conjunctival injection. No scleral icterus. Ear, nose, mouth, throat: Grossly normal inspection. Normal voice, handling secretions normally. No hemotympanum bilaterally. No septal hematoma. Neck: Trachea midline. No midline cervical spinal tenderness. Cardiovascular: Well-perfused distal extremities. Regular rate and rhythm Respiratory: Nonlabored respiration. Clear lungs bilaterally. Chest wall: Minimal right-sided chest wall discomfort. No flail segments. No signs of trauma. Gastrointestinal: Nondistended abdomen. Soft nontender. No rebound. No guarding. Musculoskeletal: No edema. Moving all 4 extremities spontaneously. Pelvis stable anterior posterior compression. 5/5 strength bilateral dorsi and p lantarflexion. Sensation intact in the feet bilaterally. Back: Midline lumbar spinal tenderness and right-sided paraspinal lumbar tenderness. No step-offs. No obvious deformities. Skin: Normal for age and race, grossly normal temperature and turgor. No acute rash. Neurologic: Alert and appropriate, no apparent acute deficits. Psychiatric: Mood and manner are appropriate. Grooming and personal hygiene are appropriate. Related Data Home Medications Medication Instructions Recorded Confirmed ahi flower 1 cap PO DAILY 07/03/19 02/24/23 vitamin B complex (B 1 tab PO DAILY 07/03/19 02/24/23 Complex-Vitamin B12 tablet) cholecalciferol (vitamin D3) 10 400 unit PO DAILY 07/20/19 02/24/23 mcg (400 unit) capsule latanoprost 0.005 % eye drops 1 drp ophthalmic (eye) DAILY 05/23/21 02/24/23 evening primrose oil 500 mg capsule 1,000 mg PO DAILY PRN hot flashes 07/07/21 02/24/23 timolol 0.25 % eye drops 1 drp ophthalmic (eye) DAILY 02/24/23 02/24/23 lidocaine 5 % topical patch 1 patch topical DAILY #15 ea 02/06/24 (Lidoderm) Previous Rx's Medication Instructions Recorded lidocaine 5 % topical patch 1 patch topical DAILY #15 ea 02/06/24 (Lidoderm) Allergies Allergy/AdvReac Type Severity Reaction Status Date / Time No Known Allergies Allergy Verified 02/06/24 14:28 General Stated Complaint: Trauma YSABEL: 3 Course Vital Signs Vital signs: Vital Signs Temperature 37.1 C 02/06/24 14:23 Pulse 73 02/06/24 14:23 Respiratory Rate 18 02/06/24 14:23 Blood Pressure 135/87 02/06/24 14:23 Pulse Oximetry 100 02/06/24 14:23 Temperature 37.1 C 02/06/24 14:23 Temperature Source Temporal Artery Scan 02/06/24 14:23 Pulse 73 02/06/24 14:23 Respiratory Rate 18 02/06/24 14:23 Blood Pressure 135/87 02/06/24 14:23 Pulse Oximetry 100 02/06/24 14:23 Medical Decision Making Quality:SDOH Health Related Social Needs: No Data to Display PFSH All Active Problems (Updated 02/06/24 @ 18:53 by Matthew Colón MD) T12 compression fracture (Acute) Family history of breast cancer in mother (Chronic) Post-menopausal s/p mastectomy Osteoporosis (Chronic ~03/2022) Varicose veins of leg with pain (Acute) LLE, 03/24/22- varicose veins of right lower extremity. Loss of height (Chronic) Family history of osteoporosis in mother (Chronic) kyphosis; hip fx Vegan diet (Acute) History of melanoma (Chronic) Lip (upper R lip)--reconstruction & temporary tattoo Medical History (Updated 02/06/24 @ 18:53 by Matthew Colón MD) Choledocholithiasis Cholelithiasis Lumbar vertebral fracture L2 Ectopic x3; BI infertility work-up Surgical History (Updated 02/24/23 @ 13:14 by Christen Coon NP) Breast implant status Status post endovenous radiofrequency ablation (RFA) of saphenous vein (~12/2021) 01/16/22 F/U [facility], Dr Loya History of colonoscopy [place] S/P laparoscopic cholecystectomy 07/25/19 Dr Rohini Gutierrez, [facility] S/P skin cancer resection multiple--melanoma lip, sqamous (chest), multiple basal Hysteroscopy (05/26/16) MD Clarence David; multiple infertility treatments Dilation and curettage (05/26/16) MD Clarence David Family History Mother Breast cancer Father Heart disease Social History Smoking/Tobacco Use Status: Never Second Hand Exposure: No Smoking risk assessment performed?: Yes (N/A) Alcohol Intake: never Counseling given: No (N/A) Drug use: Never Substance use type: does not use Adopted: No Caregiver/Support person: No Foster care: No Household members: spouse Housing: house Number of Children: 0 number of grandchildren: 0 Communication Needs: None Education Level: high school Do you need help understanding health information?: Rarely Pets and animals: Yes (2) Pets and animals: dog(s) Sexually active: Yes Do you think of yourself as: straight/heterosexual Current gender identity: female What is your relationship status?: How often do you talk on the phone with friends or family?: decline to answer How often do you get together with friends or relatives?: decline to answer Do you belong to any clubs or organized social groups?: decline to answer Panel score (0-1 are the most socially isolated patients): 1 What type of physical activity do you participate in: walking and bicycling Duration: 60-90 minutes/day Frequency: daily Angie/Confucianism: Taoism Special angie needs: No Seatbelt use: always Helmet use: Yes Helmet use: always Drive intox or ride w/intox cdl a driver: No Do you feel safe at home: Yes Do you feel safe in your relationship?: Yes POCUS Exam (ED) Efast Exam DATE OF EXAM: 02/06/24 TIME OF EXAM: 14:51 PROVIDER THAT PEFORMED THE STUDY: Matthew Colón IS THIS A REPEAT EXAM DURING THIS ENCOUNTER: no REASON FOR EXAM: Other (Trauma) indication: Fall VISUALIZED STRUCTURES: Hepatorneal space, Pelvis, Pericardium, Perisplenic space, Pleural space/left, Pleural space/right and Other structure: Bilateral lungs PERTINENT FINDINGS/IMPRESSION: no apparent free fluid, no pericardial effusion, no pleural effusion on the left side, no pleural effusion on the right side, no pneumothorax on left side and no pneumothorax on right side INCIDENTAL FINDINGS: Negative eFAST exam Limited Transthoracic Echo: Exam complete Limited Abdominal Exam: Exam complete Limited Retroperitoneal Exam: Exam complete
--- NOTE | 2024-02-06 16:11 | DI.VRAD_ITS ---
PROCEDURE INFORMATION: Exam: XR Chest Exam date and time: 02/06/2024 3:29 PM Age: 58 years old Clinical indication: Other: History of falling TECHNIQUE: Imaging protocol: Radiologic exam of the chest. Views: 1 view. COMPARISON: CT CHEST PE ABD PELVIS W 06/30/2019 2:23 PM FINDINGS: Lungs: Unremarkable. No consolidation. Pleural spaces: Unremarkable. No pleural effusion. No pneumothorax. Heart/Mediastinum: Unremarkable. No cardiomegaly. Bones/joints: Unremarkable. Soft tissues: There are bilateral breast implants. There are some peripheral calcifications involving the right implant. IMPRESSION: No evidence for acute posttraumatic abnormality. Dictated and Authenticated by: Joanna Kelly MD. Ordering:BARBARA Castro MD
--- NOTE | 2024-02-06 16:30 | DI.RAD_ITS ---
Exam(s) XR THORACIC SPINE COMPLETE EXAM: XR THORACIC SPINE COMPLETE CLINICAL HISTORY: T12 fracture. TECHNIQUE: 2D digital imaging was performed of the thoracic spine. Three views were obtained. AP, swimmer's and lateral views were obtained. COMPARISON: CT CT THORACIC LUMBAR SPINE WO from 02/06/2024 FINDINGS: BONES: There is again seen mild compression of the T7 vertebral body. There is also again seen compr ession of the T12 vertebral body superior endplate. These findings were present on the CT scan of th e thoracic spine performed the same day. No new fracture is seen. DISKS:Mild degenerative changes are seen in the spine. Bones are osteopenic. SOFT TISSUE: The patient has breast implants. IMPRESSION: No change in appearance of the T7 and T12 vertebral bodies when compared to the CT scan performed the same day. DATA REPOSITORY: RADIATION DOSE DELIVERED:
--- NOTE | 2024-02-06 16:37 | DI.VRAD_ITS ---
Addendum created by Joanna Kelly MD on 02/06/2024 7:14:27 PM EDT: I discussed case findings with ROHITBENJAMIN 02/06/2024 7:14 PM EDT. Addendum created by Joanna Kelly MD on 02/06/2024 6:54:55 PM EDT: Clarification: There is an acute appearing right-sided L1 compression fracture there is no significant loss of vertebral body height. Initial report created on 02/06/2024 4:37:10 PM EDT: PROCEDURE INFORMATION: Exam: CT Thoracic Spine Without Contrast Exam date and time: 02/06/2024 3:16 PM Age: 58 years old Clinical indication: Injury or trauma; Fall; Blunt trauma (contusions or hematomas) TECHNIQUE: Imaging protocol: Computed tomography of the thoracic spine without contrast. COMPARISON: CT CHEST PE ABD PELVIS W 06/30/2019 2:23 PM FINDINGS: Bones/joints: Bone mineralization appears decreased. There is compression deformity of the superior endplate of T7, uncertain chronicity. It has developed in the interval since previous chest CT. There is approximately 25% loss of vertebral body height. There is no retropulsion or stenosis. There is a compression fracture at the T12 level, probably acute. There is mild retropulsion without significant stenosis. There is approximately 40% loss of vertebral body height. Soft tissues: Unremarkable. Vasculature: Mild atherosclerotic change noted in the vasculature. Lungs: There are early calcifications of the tracheobronchial tree bilaterally. Mild bibasilar dependent edema. IMPRESSION: Compression fractures T7 and T12. T12 may be acute. Mild retropulsion without stenosis. PROCEDURE INFORMATION: Exam: CT Lumbar Spine Without Contrast Exam date and time: 02/06/2024 3:16 PM Age: 58 years old Clinical indication: Injury or trauma; Fall; Blunt trauma (contusions or hematomas) TECHNIQUE: Imaging protocol: Computed tomography of the lumbar spine without contrast. COMPARISON: CT CHEST PE ABD PELVIS W 06/30/2019 2:23 PM FINDINGS: Bones/joints: There are compression deformities involving L2 through L4, uncertain chronicity. There may be a prominent Schmorl's node associated at the L3 level. No retropulsion. There is moderate multilevel spondylosis without significant stenosis. Soft tissues: Unremarkable. IMPRESSION: Multiple lumbar compression deformities, L2-L4. Suspect nonacute change. MRI could help differentiate if indicated and if patient MRI compatible. Dictated and Authenticated by: Joanna Kelly MD. Ordering:BARBARA Castro MD
[2024-02-06] MEDS: oxyCODONE 5 MG TAB PO (16:44)
[2024-02-06] MEDS: Ibuprofen 400 MG TAB PO (16:44)
[2024-02-06] MEDS: Acetaminophen 500 MG TAB 1000 MG PO (16:44)
[2024-02-06] MEDS: Ondansetron O.D.T. 4 MG TABEF PO (17:37)
--- NOTE | 2024-02-06 17:45 | DI.RAD_ITS ---
Exam(s) XR LUMBAR SPINE AP, LAT EXAM: XR LUMBAR SPINE AP, LAT CLINICAL HISTORY: Thoracic spine fracture. TECHNIQUE: 2D digital imaging was performed of the lumbar spine. Three images were obtained. AP, l ateral and L5-S1 spot views were obtained. COMPARISON: CR XR DEXA BONE DENSITY W/WO BONY from 05/01/[address] THORACIC LUMBAR SPINE WO from 02/06/2024 FINDINGS: BONES: There again seen compression deformities of T12, L1, L2 and L4. These are unchanged compared to the CT scan of the lumbar spine performed earlier in the day. Degenerative changes are seen in th e spine. Degenerative changes are seen at the facets at L5-S1. DISKS: There is disc space narrowing at L2-L3. ALIGNMENT: There is a mild right convex curvature of the spine. No spondylolysis or spondylolisthesi s. SOFT TISSUE: Surgical clips are seen in the right abdomen. IMPRESSION: Stable compression deformities in the lumbar spine. These are unchanged compared to the CT scan from earlier in the day. DATA REPOSITORY: RADIATION DOSE DELIVERED:
[2024-02-06] MEDS: Normal Saline 500 ML IV (17:46)
--- NOTE | 2024-02-06 18:03 | NUR.NOTE ---
Referral given to Care Management to [facility] for [place]12 fracture needs TLSO; LUCA; consulted with [facility] Chad Leal who advised this. Nursing Note:
--- NOTE | 2024-02-06 18:40 | DI.VRAD_ITS ---
PROCEDURE INFORMATION: Exam: XR Thoracic Spine Exam date and time: 02/06/2024 6:23 PM Age: 58 years old Clinical indication: Injury or trauma; Other: Thoracic spine fracture TECHNIQUE: Imaging protocol: Radiologic exam of the thoracic spine. Views: 3 views. COMPARISON: CT THORACIC LUMBAR SPINE WO 02/06/2024 3:16 PM FINDINGS: Tubes, catheters and devices: Right-sided breast implant noted. Bones/joints: There is a compression deformity at the T12 level, uncertain chronicity. There appears to be approximately 30% loss of vertebral body height. A recently noted T7 compression deformity is less conspicuous on plain film. Soft tissues: Unremarkable. IMPRESSION: T7 and T12 compression deformities, uncertain chronicity. Dictated and Authenticated by: Joanna Kelly MD. Ordering:BARBARA Castro MD
--- NOTE | 2024-02-06 18:54 | DI.VRAD_ITS ---
PROCEDURE INFORMATION: Exam: XR Lumbosacral Spine Exam date and time: 02/06/2024 6:24 PM Age: 58 years old Clinical indication: Injury or trauma; Other: Thoracic spine fracture TECHNIQUE: Imaging protocol: Radiologic exam of the lumbosacral spine. Views: 2 or 3 views. COMPARISON: CT THORACIC LUMBAR SPINE WO 02/06/2024 3:16 PM FINDINGS: Bones/joints: T12 compression deformity noted. There is a right-sided L1 compression fracture best appreciated on CT assessment. L2 through L4 compression deformities are noted. Soft tissues: Unremarkable. Intraperitoneal space: Right upper quadrant surgical clips are present consistent with previous cholecystectomy. IMPRESSION: Compression deformities are present T12 through L4. Better appreciated on CT assessment, L1 compression deformity on the right appears acute. Dictated and Authenticated by: Joanna Kelly MD. Ordering:BARBARA Castro MD
[2024-02-06] MEDS: Lidocaine 5% Patch 1 PATCH TP (19:09)
[2024-02-06] MEDS: Ondansetron O.D.T. 4 MG TABEF, 3 TABS/BTL PO (19:09)
[2024-02-06 19:21] VITALS: BP 127/83; PULSE 73; RESP 16; O2SAT 100
== END 2024-02-06 19:21 | disposition home or self-care (01) ==
PROVIDERS: Emergency Provider Emergency Medicine; PCP Nurse Practitioner Adult Health
DX: S22.088A Other fracture of T11-T12 vertebra, initial encounter for closed fracture (principal); Y93.H2 Activity, gardening and landscaping; Y92.017 Garden or yard in single-family (private) house as the place of occurrence of the external cause
CPT/HCPCS: 76604; 76705; 76857; 99283; 71045; 72072; 72100; 72128; 72131

== ENCOUNTER → 2024-03-15 04:40 | Outpatient (CLI) | payer BC, SELFPAY ==
--- NOTE | 2024-03-15 07:45 | DI.RAD_ITS ---
Exam(s) XR SCOLIOSIS T-L SPINE EXAM: XR SCOLIOSIS T-L SPINE CLINICAL HISTORY: ? scoliosis,interval f/u fractures,lumbar,T 7 and T 12. TECHNIQUE: 2D digital imaging was performed. COMPARISON: No exams were available for comparison FINDINGS: Eight views: There is a scoliosis evident in the lumbar spine convex left which appears to start at T12 level. There is asymmetric narrowing of the left side at the T11-T12 disc space. 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 Also moderate disc space narrowin g at upper levels in the lumbar spine with normal disc height at L4-5 and L5-S1 levels. There is ind entation of the superior endplate of L2 and slight loss of height of L1. No obvious lytic nor blasti c osseous lesions evident. Visualized the joint spaces appear preserved. Vazquez angle measurement is derived off the superior endplate of T12 and inferior endplate of L4 and de scribes an angle of approximately 9 degrees. IMPRESSION: Multilevel findings as above. Scoliosis convex left in the lumbar spine with Vazquez angle measurement of approximately 9 degrees, as measured above. DATA REPOSITORY: RADIATION DOSE DELIVERED:
== END ==
PROVIDERS: PCP Nurse Practitioner Adult Health; Visit Provider Nurse Practitioner Adult Health
DX: S22.080A Wedge compression fracture of T11-T12 vertebra, initial encounter for closed fracture (principal); S22.060A Wedge compression fracture of T7-T8 vertebra, initial encounter for closed fracture; X58.XXXA Exposure to other specified factors, initial encounter
CPT/HCPCS: 72082

== ENCOUNTER 2024-05-08 10:30 | Outpatient (REF) | payer BC, SELFPAY ==
[2024-05-08 16:16] LABS: Creatinine,Urine 23.18 mg/dL
[2024-05-08 16:19] LABS: Creatinine,24hr Ur 0.72 g/24hr (0.60-1.80); Total Volume 3100 ml
[2024-05-09 09:20] LABS: Calcium Urine 24 hr 155 mg/24hr (100-300); Timed Urine Volume 3100 mL
== END 2024-05-08 10:31 | disposition home or self-care (01) ==
LOC: LBN 10:30
PROVIDERS: PCP Nurse Practitioner Adult Health; Visit Provider Internal Medicine Endocrinology, Diabetes & Metabolism
DX: M81.0 Age-related osteoporosis without current pathological fracture (principal); M80.00XD Age-related osteoporosis with current pathological fracture, unspecified site, subsequent encounter for fracture with routine healing
CPT/HCPCS: 81050; 82340; 82570

== ENCOUNTER 2024-06-08 02:45 | Outpatient (CLI) | payer BC, SELFPAY ==
--- NOTE | 2024-06-08 | DI.DEXA_ITS ---
Exam(s) XR DEXA BONE DENSITY W/WO BONY EXAM: XR DEXA BONE DENSITY W/WO BONY CLINICAL HISTORY: M81.0 Osteoporosis, unspecified osteoporosis type, unspecified pathological TECHNIQUE: COMPARISON: CR XR DEXA BONE DENSITY W/WO BONY from 05/01/2022 CR,XR XR LUMBAR SPINE AP, LAT from 02/06/2024 FINDINGS: Lateral Spine Image: There are new compression deformities at T12 and L1 which were not present on th e examination from 05/01/2022. The L1 compression fracture appears to have progressed since the x-ray from 02/06/2024. Left hip: Total T-Score: -2.6. This compares to -2.3 on the prior examination. Total Z-Score: -1.7 T- and Z-scores: Findings are consistent with osteoporosis. Lumbar Spine: Total T-Score: -4.2. Total Z-Score: -2.8 T- and Z-scores: Findings are consistent with osteoporosis. IMPRESSION: 1. Osteoporosis in the left hip and lumbar spine. 2. Progression of the L1 compression fracture since the x-ray examination from 02/06/2024. Unexpected findings
== END 2024-06-08 03:05 ==
LOC: DI 02:46
PROVIDERS: PCP Nurse Practitioner Adult Health; Visit Provider Internal Medicine Endocrinology, Diabetes & Metabolism
DX: Z13.820 Encounter for screening for osteoporosis (principal); M81.0 Age-related osteoporosis without current pathological fracture
CPT/HCPCS: 77080

== ENCOUNTER 2025-04-12 00:44 | Outpatient (CLI) | payer BC, SELFPAY ==
--- NOTE | 2025-04-12 08:15 | DI.MAMMO_ITS ---
Exam(s) MG MAMMO SCREENING 60 MIN DUR EXAM: MG MAMMO SCREENING 60 MIN DUR CLINICAL HISTORY: breast cancer screening, fx hx cancer in mother Z80.3, Z98.82, Z12.39 TECHNIQUE: Bilateral full field digital CC and MLO mammographic images were obtained with 3D tomosynthesis and utilizing computer aided detection (CAD). COMPARISON: Comparison is made with prior examinations. FINDINGS: The patient has bilateral breast implants which show peripheral calcification. Masses/Architectural Distortion: No suspicious masses or areas of architectural distortion are present. Microcalcifications: No suspicious pleomorphic-type are seen. Skin Thickening/Nipple Retraction: None. IMPRESSION: 1. No significant interval change with no specific features of malignancy noted. 2. Unless there is more urgent need, screening mammography is recommended, as per [place] [employer] guidelines. BI-RADS Category 1 - Negative Breast Density - Category C - The breast are heterogeneously dense, which may obscure small masses. Breast density Category C or D implies that the patient has dense breast tissue. Dense breast tissue can make it harder to find cancer on a mammogram. Dense breast tissue is also associated with an increased risk of breast cancer. This information about the result of the mammogram report was provided to the patient to raise their awareness. Use this report when you speak with the patient about their risks for breast cancer, which includes their family history. At that time, you may recommend additional screening tests (Ultrasound or MRI) as these tests may add significant information. A negative radiographic report should not delay biopsy if a dominant or clinically suspicious mass is present. Up to ten percent of cancers are not identified on mammography. A negative report may reinforce clinical impression. Adenosis and dense breasts may obscure an underlying neoplasm. False positive reports average 6 to 10%. Patient will receive a letter notifying them of these results.
== END 2025-04-12 01:04 ==
LOC: DI 00:44
PROVIDERS: PCP Nurse Practitioner Adult Health; Visit Provider Nurse Practitioner Adult Health
DX: Z80.3 Family history of malignant neoplasm of breast (principal); Z98.82 Breast implant status; Z12.31 Encounter for screening mammogram for malignant neoplasm of breast; R92.333 Mammographic heterogeneous density, bilateral breasts
CPT/HCPCS: 77063; 77067